=== PATIENT | male | born 1970 | race Two or more races ===

== ENCOUNTER 2019-12-25 10:30 | Emergency (ER) | payer MEDICAID ==
[~2019-12-25] VITALS: Ht 165.1 cm; Wt 70.3 kg
--- NOTE | 2019-12-25 10:49 | Emergency Room Report ---
History of Present Illness General Chief Complaint: Abdominal Pain Source: Patient Present Illness HPI Disclaimer: Please note that this report is being documented using [employer] technology. This can lead to erroneous entry secondary to incorrect interpretation by the dictating instrument. HPI: 49-year-old male presents for evaluation of abdominal pain. Symptoms began 3 days ago. He noted mild periumbilical discomfort though this morning noted severe worsening of the pain described as cramping in the right lower quadrant now. He also reports some dysuria beginning this morning without hematuria. Reports right-sided flank pain. Continues to eat and drink at baseline. Denies vomiting though reports mild nausea currently. Denies fever, chills, chest pain, shortness of breath, cough, URI symptoms, melena or hematochezia. Reports increased flatulence lately. 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 EOMI. Cardiovascular: RRR. S1 and S2 normal. No murmur appreciated Resp: Normal work of breathing. No cough, wheezing or crackles appreciated Abdomen: Abdomen is soft, nondistended. Tenderness palpation in the periumbilical, suprapubic, right lower quadrant. Negative rebound. Positive Rovsing's and obturator sign. Right-sided flank tenderness. Skin: Intact. No abrasions, laceration or rash over the exposed skin MSK: Normal tone and bulk. Moving all extremities. No obvious deformity. Neuro: Awake and alert. Mentating appropriately. Medical Decision Making Diagnostic Impression: Primary Impression: Inguinal hernia Additional Impressions: Kidney stone Liver cyst Hiatal hernia ER Course This a 49-year-old male presenting for evaluation of abdominal pain. Differential includes was not limited to appendicitis, nephrolithiasis, UTI, pyelonephritis, gastritis, gastroenteritis, cholecystitis, bowel obstruction, constipation, pancreatitis to name a few. Patient's story and physical exam are somewhat concerning for appendicitis, obstruction and require CT imaging. Labs, IV fluids, antiemetics and pain medication ordered. 1345: CT consistent with right nephrolithiasis showing a 6 x 3 mm stone 3 cm from the UVJ. There is mild hydronephrosis and perinephric stranding. Urinalysis did not show evidence of acute infection, no bacteria seen. Kidney function within normal limits and no significant white count. The patient everett afebrile. CT also noted possible bilateral pulmonary infiltrates which may represent multifocal pneumonia however the patient is asymptomatic and denies any recent cough, fever, chest discomfort of any kind. We discussed antibiotic treatment however he declined at this point but stated that he would return to the ED should he develop any of the symptoms. CT also noted some nonspecific liver lesions, bilateral fat-containing inguinal hernias and a small sliding-type hiatal hernia which will be followed up on an outpatient basis by the patient. He is given copy of his CT report and labs. He will be treated with Flomax, pain medication, antiemetics and discharged. Encouraged to drink plenty of fluids. Instructed to return to the ED with new or worsening symptoms. He understands and agrees with this treatment plan will be discharged. Laboratory Tests Test 12/25/19 11:00 White Blood Count 7.9 K/UL (4.8-10.8) Red Blood Count 5.16 M/UL (4.70-6.10) Hemoglobin 15.8 G/DL (14.2-18.0) Hematocrit 47.3 % (42.0-52.0) Mean Corpuscular Volume 92 FL (80-99) Mean Corpuscular Hemoglobin 30.7 PG (27.0-31.0) Mean Corpuscular Hemoglobin Concent 33.4 G/DL (32.0-36.0) Red Cell Distribution Width 12.1 % (11.6-14.8) Platelet Count 238 K/UL (150-450) Mean Platelet Volume 7.1 FL (6.5-10.1) Neutrophils (%) (Auto) 45.7 % (45.0-75.0) Lymphocytes (%) (Auto) 42.5 % (20.0-45.0) Monocytes (%) (Auto) 8.0 % (1.0-10.0) Eosinophils (%) (Auto) 3.2 % (0.0-3.0) H Basophils (%) (Auto) 0.6 % (0.0-2.0) Urine Color Pale yellow Urine Appearance Clear Urine pH 5 (4.5-8.0) Urine Specific [place] 1.020 (1.005-1.035) Urine Protein 1+ (NEGATIVE) H Urine Glucose (UA) Negative (NEGATIVE) Urine Ketones Negative (NEGATIVE) Urine Blood 5+ (NEGATIVE) H Urine Nitrite Negative (NEGATIVE) Urine Bilirubin Negative (NEGATIVE) Urine Urobilinogen Normal MG/DL (0.0-1.0) Urine Leukocyte Esterase 1+ (NEGATIVE) H Urine RBC 30-40 /HPF (0 - 0) H Urine WBC 0-2 /HPF (0 - 0) Urine Squamous Epithelial Cells Occasional /LPF Urine Bacteria Occasional /HPF (NONE) Urine Mucus Few /LPF (NONE/OCC) H Sodium Level 138 MMOL/L (136-145) Potassium Level 3.8 MMOL/L (3.5-5.1) Chloride Level 102 MMOL/L (98-107) Carbon Dioxide Level 24 MMOL/L (21-32) Anion Gap 12 mmol/L (5-15) Blood Urea Nitrogen 18 mg/dL (7-18) Creatinine 1.2 MG/DL (0.55-1.30) Estimated Glomerular Filtration Rate > 60 mL/min (>60) Glucose Level 125 MG/DL (74-106) H Calcium Level 8.9 MG/DL (8.5-10.1) Total Bilirubin 0.3 MG/DL (0.2-1.0) Aspartate Amino Transferase (AST) 24 U/L (15-37) Alanine Aminotransferase (ALT) 36 U/L (12-78) Alkaline Phosphatase 55 U/L (46-116) Total Protein 7.7 G/DL (6.4-8.2) Albumin 4.0 G/DL (3.4-5.0) Globulin 3.7 g/dL Albumin/Globulin Ratio 1.1 (1.0-2.7) Lipase 145 U/L (73-393) CT/MRI/US Diagnostic Results CT/MRI/US Diagnostic Results : Impression Impression: Positive for 6 x 3 mm distal right ureteral calculus. Resultant mild right hydroureter, hydronephrosis, and perinephric fat stranding Bilateral basilar pulmonary parenchymal infiltrates, right greater than left. The possibility of multifocal pneumonia should be considered. Subcentimeter low-attenuation liver lesions, too small to characterize, most likely benign simple cysts or bile hamartomas Other findings as noted, including small inguinal hernias that contain only fat, small sliding-type hiatal hernia Dictated By: Eulogio Cullen MD Electronically Signed By: Eulogio Cullen MD Signed Date/Time 12/25/19 1304 CC: Jorje Howell MD Last Vital Signs Date Time Temp Pulse Resp B/P (MAP) Pulse Ox O2 Delivery O2 Flow Rate FiO2 12/25/19 10:33 98.2 70 19 162/125 (137) 99 Room Air Disposition: HOME, SELF-CARE Condition: Improved Scripts Ondansetron Odt* (ZOFRAN ODT*) 4 Mg Tab.rapdis 4 MG BC EVERY 6 HOURS PRN for Nausea & Vomiting, #20 TAB 0 Refills Prov: Jorje Howell MD 12/25/19 Tamsulosin HCl (Flomax) 0.4 Mg Cap.er.24h 0.4 MG ORAL DAILY for 5 Days, #5 CAP Prov: Jorje Howell MD 12/25/19 Hydrocodone Bit/Acetaminophen 7.5-325* (NORCO 7.5-325*) 1 Each Tablet 1 TAB ORAL Q6H PRN for For Pain, #15 TAB 0 Refills Prov: Jorje Howell MD 12/25/19 Ibuprofen* (MOTRIN*) 600 Mg Tablet 600 MG ORAL Q6H PRN for For Pain, #30 TAB 0 Refills Prov: Jorje Howell MD 12/25/19 Jorje Howell MD Dec 25, 2019 10:49
[2019-12-25] MEDS ORDERED: Morphine Sulfate 4mg/ml Inj (IV USE ONLY) IVP ONE ×2 (11:00→11:15)
[2019-12-25 11:05] VITALS: BP 162/125
[2019-12-25 11:13] LABS: BASOPHILS % (AUTO) 0.6 % (0.0-2.0); EOSINOPHILS % (AUTO) 3.2 % (0.0-3.0); HEMATOCRIT 47.3 % (42.0-52.0); HEMOGLOBIN 15.8 G/DL (14.2-18.0); LYMPHOCYTES % (AUTO) 42.5 % (20.0-45.0); MEAN CORPUSCULAR VOLUME 92 FL (80-99); NEUTROPHILS % (AUTO) 45.7 % (45.0-75.0); PLATELET COUNT 238 K/UL (150-450); RED BLOOD COUNT 5.16 M/UL (4.70-6.10); RED CELL DISTRIBUTION WIDTH 12.1 % (11.6-14.8); WHITE BLOOD COUNT 7.9 K/UL (4.8-10.8)
[2019-12-25 11:15] LABS: APPEARANCE,URINE CLEAR; BILIRUBIN, URINE NEGATIVE (NEGATIVE); COLOR,URINE PALE YELLOW; GLUCOSE, URINE (UA) NEGATIVE (NEGATIVE); KETONES,URINE NEGATIVE (NEGATIVE); LEUKOCYTE ESTERASE ,URINE 1+ (NEGATIVE); NITRITE,URINE NEGATIVE (NEGATIVE); PH,URINE 5 (4.5-8.0); PROTEIN,URINE 1+ (NEGATIVE); UROBILINOGEN,URINE NORMAL MG/DL (0.0-1.0)
[2019-12-25] MEDS ORDERED: Omnipaque-300 100ml vial INJ PRN (11:15)
[2019-12-25 11:23] LABS: ANION GAP 12 mmol/L (5-15); BLOOD UREA NITROGEN 18 mg/dL (7-18); CALCIUM 8.9 MG/DL (8.5-10.1); CARBON DIOXIDE 24 MMOL/L (21-32); CHLORIDE 102 MMOL/L (98-107); CREATININE 1.2 MG/DL (0.55-1.30); POTASSIUM 3.8 MMOL/L (3.5-5.1); SODIUM 138 MMOL/L (136-145)
[2019-12-25 11:27] LABS: ALANINE AMINOTRANSFERASE 36 U/L (12-78); ALBUMIN/GLOBULIN RATIO 1.1 (1.0-2.7); ALKALINE PHOSPHATASE 55 U/L (46-116); ASPARTATE AMINO TRANSFERASE 24 U/L (15-37); BILIRUBIN,TOTAL 0.3 MG/DL (0.2-1.0)
[2019-12-25 12:45] VITALS: BP 132/78
--- NOTE | 2019-12-25 13:09 | Diagnostic Imaging Report ---
Clinical Indication: Right lower quadrant cramping abdominal pain and dysuria, right sided flank pain Technique: No oral contrast utilized, per emergency room physician request IV administration nonionic contrast. Venous phase spiral acquisition obtained through the abdomen and pelvis. Multiplanar reconstructions were generated. Total dose length product 267 mGycm. CTDIvol(s) 5 mGy. Dose reduction achieved using automated exposure control Comparison: none Findings: 6 x 3 mm calculus projects in the distal right ureter, approximately 3 cm proximal to the ureterovesical junction. There is mild right hydroureter, as well as some stranding about the right ureter and right renal pelvis. There is mild right hydronephrosis and minimal right perinephric fat stranding. No intrarenal calculi are demonstrated on either side. No left ureteral calculi, left hydronephrosis nor left hydroureter. No renal parenchymal mass or cyst demonstrated. The seminal vesicles are prominent. The bladder is nondistended, unremarkable. The prostate is unremarkable. Lack of enteric contrast limits assessment of the GI tract. There are small left greater than right inguinal hernias that contain only fat. No evidence of colonic diverticulosis or diverticulitis. Prominent but otherwise grossly normal appendix. No small bowel distention. There is a small sliding-type hiatal hernia. The distal esophagus, stomach, duodenum are otherwise unremarkable. The liver demonstrates multiple subcentimeter low-attenuation lesions which are too small to characterize. The gallbladder, bile ducts, pancreas, spleen, adrenals are unremarkable. No retroperitoneal or mesenteric mass or adenopathy. No pelvic mass or adenopathy. Posterior infiltrates, right greater than left, are seen at both lung bases. There is also some atelectasis or scarring in the inferior lingula. The bones are unremarkable. Impression: Positive for 6 x 3 mm distal right ureteral calculus. Resultant mild right hydroureter, hydronephrosis, and perinephric fat stranding Bilateral basilar pulmonary parenchymal infiltrates, right greater than left. The possibility of multifocal pneumonia should be considered. Subcentimeter low-attenuation liver lesions, too small to characterize, most likely benign simple cysts or bile hamartomas Other findings as noted, including small inguinal hernias that contain only fat, small sliding-type hiatal hernia The CT scanner at [facility] is accredited by the [employer] and the scans are performed using protocols designed to limit radiation exposure to as low as reasonably achievable to attain images of sufficient resolution adequate for diagnostic evaluation.
[2019-12-25] MEDS ORDERED: NORCO 7.5-3251 EACH ORAL (13:29)
[2019-12-25] MEDS ORDERED: ONDANSETRON ODT4 MG BC (13:29)
[2019-12-25] MEDS ORDERED: FLOMAX0.4 MG ORAL (13:29)
[2019-12-25] MEDS ORDERED: IBUPROFEN600 M1 ORAL (13:29)
[2019-12-25] MEDS ORDERED: Ketorolac 30mg Inj IV ONE (13:45)
[2019-12-25 13:49] VITALS: BP 128/70
== END 2019-12-25 13:49 | disposition home or self-care (01) ==
LOC: EMR 10:45
DX: K40.20 Bilateral inguinal hernia, without obstruction or gangrene, not specified as recurrent (principal); N13.2 Hydronephrosis with renal and ureteral calculous obstruction; K76.89 Other specified diseases of liver; K44.9 Diaphragmatic hernia without obstruction or gangrene
CPT/HCPCS: 36415; 74177; 80053; 81003; 83690; 85025; 86850; 86900; 86901; 96361; 96374; 96375; J1885; J2270; J2405; J7030; Q9967; Z7502; 99284

== ENCOUNTER 2020-07-17 21:13 | Emergency (ER) | payer MEDICAID ==
[~2020-07-17] VITALS: Ht 165.1 cm; Wt 73.5 kg
[~2020-07-17 21:13] MED LIST: FLOMAX0.4 MG ORAL; IBUPROFEN600 M1 ORAL; NORCO 7.5-3251 EACH ORAL; ONDANSETRON ODT4 MG BC
[2020-07-17] MEDS ORDERED: MEDROL DOSEPAK4 MG ORAL (21:33)
[2020-07-17] MEDS ORDERED: BENADRYL25 MG ORAL (21:33)
[2020-07-17] MEDS ORDERED: FAMOTIDINE20 MG ORAL (21:33)
--- NOTE | 2020-07-17 21:34 | NUR ---
ED Nurse Note: Patient walked into the ED with c/o hives throughout the body onset 07/13. Cause unknown. Pt took benadryl this am without relief. No SOB/. Pt is AAOx4 and ambulatory. ERMD at bedside. VSS as documented
--- NOTE | 2020-07-17 21:36 | Emergency Room Report ---
History of Present Illness General Chief Complaint: Allergies Source: Patient Present Illness HPI Patient presents to the emergency department today complaining of rash throughout his body for the last couple days. Patient admits to abusing some drugs by smoking it he thinks that that might of caused it. He denies chest pain shortness of breath no new medications. No new topical lotion or soap. No new foods. Symptoms are mild to moderate. States that it is very itchy. Denies difficulty swallowing or oral swelling. No other modifying factors. No other associated signs and symptoms. No other complaints were noted. 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: No COVID-19 Screening: Negative COVID-19 COVID-19 Testing Source: [facility] Patient History Past Medical History: none Past Surgical History: none Pertinent Family History: none Social History: Denies: smoking, alcohol use, drug use Reviewed Nursing Documentation: PMH: Agreed; PSxH: Agreed Nursing Documentation-PMH Past Medical History: No Stated History Review of Systems All Other Systems: negative except mentioned in HPI Physical Exam Vital Signs Date Time Temp Pulse Resp B/P (MAP) Pulse Ox O2 Delivery O2 Flow Rate FiO2 07/17/20 21:20 97.3 84 20 144/91 (108) 98 Room Air Sp02 EP Interpretation: reviewed, normal General Appearance: normal inspection, well appearing, no apparent distress, alert Head: atraumatic Eyes: bilateral eye normal inspection ENT: normal ENT inspection, hearing grossly normal, normal voice Neck: normal inspection, full range of motion, supple, no bony tend Respiratory: normal inspection, lungs clear, normal breath sounds, no respiratory distress, no retraction, no wheezing Cardiovascular #1: regular rate, rhythm, no edema Gastrointestinal: normal inspection, normal bowel sounds, non tender, soft, no guarding, no hernia Genitourinary: no CVA tenderness Musculoskeletal: normal inspection, back normal, normal range of motion Neurologic: alert, responsive, speech normal, normal inspection Psychiatric: normal inspection, judgement/insight normal, mood/affect normal Skin: rash - Pruritic throughout the body Medical Decision Making Diagnostic Impression: Primary Impression: Allergic reaction ER Course Patient presents emergency department today complaint of rash on the body. Differential considerations include dermatitis, allergic reaction, infection just name a few. Patient's exam is consistent with a allergic reaction. Patient states that he was checked for STDs and it was negative. Suggesting th is is unlikely to be syphilis. Therefore I felt the patient would benefit from some Medrol Dosepak Benadryl and Pepcid. Will provide prescription. Patient is advised to follow up with primary doctor in 2-3 days and return the emergency room for any worsening symptoms and as needed. Last Vital Signs Date Time Temp Pulse Resp B/P (MAP) Pulse Ox O2 Delivery O2 Flow Rate FiO2 07/17/20 21:20 97.3 84 20 144/91 (108) 98 Room Air Status: improved Disposition: HOME, SELF-CARE Condition: Stable Scripts Famotidine* (Pepcid 20mg tablet*) 20 Mg Tablet 20 MG ORAL TWICE A DAY for Gerd, #30 TAB 0 Refills Prov: Reji Dosuza MD 07/17/20 Diphenhydramine Hcl* (BENADRYL*) 25 Mg Capsule 25 MG ORAL Q6H PRN for Itching, #20 CAP Prov: Reji Dsouza MD 07/17/20 Methylprednisolone (Methylprednisolone*) 4MG Dspk 4 MG ORAL DIRECTED for 6 Days, #21 EA 0 Refills Day 1: Two tablets before breakfast, one after lunch, one after dinner, and two at bedtime. If started late in the day, take all six tablets at once or divide into two or three doses, unless otherwise directed by prescriber. Day 2: One tablet before breakfast, one after lunch, one after dinner, and two at bedtime Day 3: One tablet before breakfast, one after lunch, one after dinner, and one at bedtime Day 4: One tablet before breakfast, one after lunch, and one at bedtime Day 5: One tablet before breakfast and one at bedtime Day 6: One tablet before breakfast Prov: Reji Dsouza MD 07/17/20 Patient Instructions: Reji Maria MD Jul 17, 2020 21:36
--- NOTE | 2020-07-17 21:52 | NUR ---
ER DISCHARGE NOTE: Patient is cleared to be discharged per ERMD, pt is aox4, on room air, with stable vital signs. pt was given dc and prescription instructions, pt was able to verbalize understanding, pt id band removed. pt is able to ambulate with steady gait. pt took all belongings.
[2020-07-17 21:53] VITALS: BP 144/91
== END 2020-07-17 21:55 | disposition home or self-care (01) ==
LOC: EMR 21:41
DX: L29.9 Pruritus, unspecified (principal); T50.905A Adverse effect of unspecified drugs, medicaments and biological substances, initial encounter; Y92.9 Unspecified place or not applicable
CPT/HCPCS: 99282

== ENCOUNTER 2020-07-21 09:37 | Emergency (ER) | payer MEDICAID ==
[~2020-07-21] VITALS: Ht 172.7 cm; Wt 72.6 kg
[~2020-07-21 09:37] MED LIST changes: +BENADRYL25 MG ORAL; +FAMOTIDINE20 MG ORAL; +MEDROL DOSEPAK4 MG ORAL
[2020-07-21] MEDS ORDERED: PERMETHRIN60 GM TOPIC (10:27)
[2020-07-21 10:34] VITALS: BP 140/99
--- NOTE | 2020-07-21 10:35 | NUR ---
ED Nurse Note: Pt cleared by health care Provider for discharge. DC instructions/prescription was given and explained to pt and verbalized understanding of teachings. All medical deviecs such as ID band removed. Pt is AAO x4, ambulatory and left with all personal belongings.
--- NOTE | 2020-07-21 10:36 | Emergency Room Report ---
History of Present Illness General Chief Complaint: Skin Rash/Abscess Source: Patient Present Illness HPI Patient is a 50-year-old male who presents to the ER complaining of a diffuse itchy rash that is been present for the past week. He states that he was seen here 4 days ago and was given Benadryl and steroids but complains of worsening symptoms. He states that he is just very itchy and that it is getting worse. He denies any fever or chills. He denies any chest pain. He states that he is concerned that it could be scabies. 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 Patient History Reviewed Nursing Documentation: PMH: Agreed; PSxH: Agreed Review of Systems All Other Systems: negative except mentioned in HPI Physical Exam Vital Signs Date Time Temp Pulse Resp B/P (MAP) Pulse Ox O2 Delivery O2 Flow Rate FiO2 07/21/20 10:16 98.6 88 16 130/90 (103) 98 Room Air Sp02 EP Interpretation: reviewed, normal General Appearance: no apparent distress, alert, GCS 15, non-toxic Head: normocephalic, atraumatic Eyes: bilateral eye normal inspection, bilateral eye PERRL ENT: hearing grossly normal, normal pharynx, no angioedema, normal voice Neck: full range of motion, supple/symm/no masses Respiratory: chest non-tender, lungs clear, normal breath sounds, speaking full sentences Cardiovascular #1: regular rate, rhythm, no edema Gastrointestinal: normal bowel sounds, non tender, soft, non-distended, no guarding, no rebound Rectal: deferred Musculoskeletal: normal range of motion Neurologic: director of instruction III-XII nml as tested, oriented x3 Psychiatric: no suicidal/homicidal ideation Skin: other - Diffuse scabies rash to chest back abdomen pelvis and extremities sparing the palms and soles Medical Decision Making Diagnostic Impression: Primary Impression: Scabies ER Course Patient given a prescription for permethrin cream. After discussing risks and benefits of further diagnostics, treatment plans, as well as indications for and risks of admission, the patient is agreeable to being discharged home. I have explained that their evaluation and treatment in the emergency department today is an important step towards them achieving better health but that their e valuation today is not intended to replace further evaluation and treatment by a physician in their local clinic. I have explained that while the current findings suggest no immediate life threatening emergency they will require further evaluation and treatment by a physician of their choice in their area. They understand that it will be necessary for them to review the final reports of their ED visit with their clinic physician. We have reviewed indications for return to the Emergency Department. I have explained that additional time may need to pass and/or additional testing as an outpatient may be necessary before a definitive diagnosis can be made. They tell me they are willing to follow up as instructed within the timeframe I recommend. They appear to understand what we discussed. Additionally they understand that if they are unable to be seen by an outpatient physician they are welcome, and in fact should, return to the Emergency Department for a repeat evaluation. The patient is stable at time of discharge. Last Vital Signs Date Time Temp Pulse Resp B/P (MAP) Pulse Ox O2 Delivery O2 Flow Rate FiO2 07/21/20 10:16 98.6 88 16 130/90 (103) 98 Room Air Disposition: HOME, SELF-CARE Condition: Stable Scripts Permethrin* (ELIMITE*) 60 Gm Cream..g. 1 APPLIC TOPIC ONCE, #60 GM 0 Refills Apply cream from head to toe; leave on for 8-14 hours before washing off with water; may reapply in 1 week if live mites appear. Prov: Valentine Mccray M.D. 07/21/20 Referrals: [facility] Patient Instructions: Pruritus, Contact Precautions, [id number] Additional Instructions: The patient was provided with discharge instructions, notified to follow-up with a primary care doctor and or specialist in the next 24-48 hours, and to return to the ED if they have worsening of their symptoms. Please note that this report is being documented using [employer] technology. This can lead to erroneous entry secondary to incorrect interpretation by the dictating instrument. Valentine Mccray M.D. Jul 21, 2020 10:36
== END 2020-07-21 10:36 | disposition home or self-care (01) ==
LOC: EMR 10:28
DX: B86 Scabies (principal)
CPT/HCPCS: 99282